=== PATIENT | male | born 1995 | race Caucasian/White ===

== ENCOUNTER 2024-01-30 15:34 | Emergency (ER) | payer BC ==
[2024-01-30 15:51] LABS: BASOPHILS ABSOLUTE AUTO 0.06 K/uL (0.00-0.20); BASOPHILS PERCENT AUTO 0.4 % (0.0-1.0); EOSINOPHILS ABSOLUTE AUTO 0.07 K/uL (0.00-0.45); EOSINOPHILS PERCENT AUTO 0.4 % (0.0-6.0); HEMATOCRIT 43.9 % (42.0-52.0); IMMATURE GRAN ABSOLUTE AUTO 0.09 K/uL (0.00-0.05); IMMATURE GRAN PERCENT AUTO 0.6 % (0.0-0.4); LYMPHOCYTES ABSOLUTE AUTO 1.42 K/uL (1.00-4.80); LYMPHOCYTES PERCENT AUTO 8.9 % (24.0-44.0); MEAN CORPUSCULAR HEMOGLOBIN 31.4 pg (28.0-32.0); MEAN CORPUSCULAR HGB CONC 36.4 g/dL (32.0-36.0); MEAN CORPUSCULAR VOLUME 86.1 fL (83.0-99.0); MONOCYTES ABSOLUTE AUTO 0.78 K/uL (0.00-0.80); MONOCYTES PERCENT AUTO 4.9 % (0.0-8.0); NEUTROPHILS ABSOLUTE AUTO 13.59 K/uL (1.80-7.70); NEUTROPHILS PERCENT AUTO 84.8 % (41.0-71.0); PLATELET COUNT,PLT 273 K/uL (150-400); WHITE BLOOD CELL COUNT,WBC 16.01 K/uL (3.9-11.3)
[2024-01-30] MEDS: Ondansetron 4 MG/2 ML SDV IVPUSH ONE (16:04)
[2024-01-30] MEDS: Morphine 2 MG/ML SYRINGE IVPUSH ONE (16:04)
[2024-01-30] MEDS: Sodium Chloride 0.9% 10 ML Syringe FLUSH PRN (16:08)
[2024-01-30] MEDS: Sodium Chloride 0.9% 2.5 ML Syringe FLUSH PRN (16:09)
[2024-01-30 16:15] LABS: A/G RATIO 1.6 (0.9-1.6); ALANINE AMINOTRANSFERASE,ALT 37 IU/L (14-63); ALBUMIN 4.8 g/dL (3.4-5.0); ALKALINE PHOSPHATASE 82 U/L (46-116); ASPARTATE AMNIOTRANSFERASE,AST 22 IU/L (15-37); BILIRUBIN TOTAL 0.8 mg/dL (0.2-1.0); BLOOD UREA NITROGEN,BUN 13 mg/dL (7.0-18.0); CALCIUM 9.2 mg/dL (8.5-10.1); CARBON DIOXIDE,CO2 26.8 mmol/L (21.0-32.0); CHLORIDE,CL 104 mmol/L (98-107); CREATININE 1.1 mg/dL (0.8-1.3); EST CRCL DRUG DOSING (CG) 105.08 mL/min; ESTIMATED GFR 95 mL/min (>60); GLUCOSE RANDOM 79 mg/dL (74-106); LIPASE 41 U/L (16-77); POTASSIUM,K 3.8 mmol/L (3.5-5.1); PROTEIN TOTAL,TP 7.8 g/dL (6.4-8.2); SODIUM,NA 141 mmol/L (136-148)
[2024-01-30 16:21] LABS: INR 1.03 (0.86-1.11); PTT,PARTIAL THROMBOPLSTIN TIME 26.5 SEC (23.9-30.7)
[2024-01-30] MEDS: Lidocaine 4% 1 each Patch TOP STA (17:23)
== END 2024-01-30 17:54 | disposition home or self-care (01) ==
LOC: MW.ED 15:34
DX: S42.001A Fracture of unspecified part of right clavicle, initial encounter for closed fracture (principal); Z79.899 Other long term (current) drug therapy; V86.56XA Driver of dirt bike or motor/cross bike injured in nontraffic accident, initial encounter; Y93.55 Activity, bike riding
CPT/HCPCS: 36415; 71046; 73000; 80053; 83690; 84484; 85025; 85610; 85730; 99284; A9270; J3490

== ENCOUNTER 2024-02-05 06:48 | Day surgery (SDC) | payer BC ==
[~2024-02-05 06:48] MED LIST: Dexamethasone 4 MG/ML 5 ML MDV ONE; Lidocaine 1% 5 ML VIAL ONE; Ondansetron 4 MG/2 ML SDV ONE; Propofol 200 MG/20 ML SDV ONE; Water For Injection, Sterile 20 ML ONE; dexmedeTOMIDine HCl 200 MCG/2 ML SDV ONE; fentaNYL 100 MCG/2 ML SDV ONE
[2024-02-05] MEDS ORDERED: Rocuronium Bromide 50 MG/5 ML Syringe ONE (06:56)
[2024-02-05] MEDS ORDERED: Ropivacaine 0.5% 5 MG/ML 30 ML SDV ONE (06:56)
[2024-02-05] MEDS ORDERED: Lidocaine 2% 5 ML SDV ONE (06:57)
[2024-02-05] MEDS ORDERED: Bupivacaine 0.5% 30 ML SDV ONE (06:57)
[2024-02-05] MEDS ORDERED: Famotidine 20 MG/2 ML SDV ONE (06:58)
[2024-02-05] MEDS: Lactated Ringers 1,000 ML IV SCH (07:10)
[2024-02-05] MEDS ORDERED: Bupivacaine 0.5%/EPINEPHrine 1:200,000 30 ML SDV ONE (07:32)
[2024-02-05] MEDS ORDERED: Metoclopramide 10 MG/2 ML SDV IVPUSH PRN (07:37)
[2024-02-05] MEDS ORDERED: Ondansetron 4 MG/2 ML SDV IVPUSH PRN (07:37)
[2024-02-05] MEDS ORDERED: Morphine 2 MG/ML SYRINGE IVPUSH PRN (07:37)
[2024-02-05] MEDS ORDERED: Naloxone 0.4 MG/ML SDV IVPUSH PRN (07:37)
[2024-02-05] MEDS ORDERED: HYDROmorphone 1 MG/ML Syringe IVPUSH PRN (07:37)
[2024-02-05] MEDS ORDERED: Albuterol 0.083% 2.5 MG/3 ML Neb Soln NEB PRN (07:37)
[2024-02-05] MEDS ORDERED: droPERidol 5 MG/2 ML SDV IVPUSH PRN (07:37)
[2024-02-05] MEDS ORDERED: fentaNYL 50 MCG/ML SDV IVPUSH PRN (07:37)
[2024-02-05] MEDS ORDERED: ceFAZolin 2 GM in Sodium Chloride 0.9% 50 ML IV ONE (08:00)
[2024-02-05] MEDS ORDERED: ceFAZolin 2 GM Vial ONE (08:14)
[2024-02-05] MEDS ORDERED: Sugammadex Sodium 200 MG/2 ML VIAL IV ONE (09:12)
[2024-02-05] MEDS ORDERED: Ketorolac 30 MG/ML SDV ONE (09:12)
[2024-02-05] MEDS ORDERED: fentaNYL 100 MCG/2 ML SDV ONE ×2 (09:19→09:21)
== END 2024-02-05 11:35 | disposition home or self-care (01) ==
LOC: MW.SDS 06:48
PROVIDERS: ATTEND Orthopaedic Surgery
DX: S42.021A Displaced fracture of shaft of right clavicle, initial encounter for closed fracture (principal); Z79.899 Other long term (current) drug therapy
CPT/HCPCS: 23515; 64415; J0131; J0665; J0690; J1100; J1885; J2704; J2795; J3010; J3490; J7120; 00450; 64488; J2405